=== PATIENT | female | born 1955 | race Caucasian/White ===

== ENCOUNTER 2016-11-12 01:36 | Emergency (ER) | payer OTHER ==
[2016-11-12 01:43] VITALS: BP 140/60
[2016-11-12] MEDS ORDERED: Ondansetron 4 MG Tab.DIS PO ONE (01:57)
[2016-11-12] MEDS ORDERED: Ondansetron 4 MG Tab.DIS ONE ×2 (01:59→05:23)
[2016-11-12] MEDS ORDERED: Promethazine 12.5 MG in Sodium Chloride 0.9% 50 ML IV PRN (02:19)
[2016-11-12] MEDS ORDERED: HYDROmorphone 1 MG/ML Syringe ONE (02:47)
[2016-11-12] MEDS ORDERED: HYDROmorphone 1 MG/ML Syringe IVPUSH ONE ×2 (02:49→04:29)
[2016-11-12 03:23] LABS: CHLORIDE,CL 103 mmol/L (98-115); SODIUM,NA 140 mmol/L (136-145)
[2016-11-12] MEDS ORDERED: Iopamidol 612 MG/ML 75 ML Bottle IV ONE (03:27)
[2016-11-12] MEDS ORDERED: Sodium Chloride 0.9% 50 ML SDV FLUSH SCH (03:30)
--- NOTE | 2016-11-12 03:35 | EDM.PDOC ---
ED HPI GENERAL MEDICAL PROBLEM - General Chief Complaint: Abdominal Pain Stated Complaint: abdominal pain Time Seen by Provider: 11/12/16 02:20 Source of Information: Reports: Patient History Limitations: Reports: No Limitations - History of Present Illness INITIAL COMMENTS - FREE TEXT/NARRATIVE: 61-year-old female presents to the emergency room with complaints of severe abdominal pain nausea and vomiting. Patient has approximately 2+ weeks of the difficulties relating to abdominal pain. She had a CT scan on 10/26/2016 showing evidence of moderate diverticulitis versus colitis from infectious processes. She was on Cipro for 2 weeks and Flagyl for 1 week. Initially she was having some diarrhea and blood in her stools but she now reports that this has ceased. She has noticed more mucus in her stool. She has not been having fevers but does feel chilled and clammy today. She feels extremely nauseated and has had 2 emesis episodes upon arrival in the ER. She describes her pain as sharp and crampy and then goes to adult pain. She rates her pain an 8 out of possible 10 on presentation to the ER. Her pain is across her lower abdomen in the right and left lower quadrant. She recently had a follow-up with her primary care earlier this week Monday and Monday as her symptoms have not completely resolved. She is brought in by her this morning because her pain became more severe and now feels extremely nauseated and again has vomited. Onset: Gradual Onset Date: 11/12/16 Onset Time: 00:00 Duration: Week(s):, Getting Worse Location: Reports: Abdomen Quality: Reports: Sharp, Other (cramping) Severity: Severe Improves with: Reports: None Worsens with: Reports: None Associated Symptoms: Reports: Diaphoresis, Fever/Chills, Nausea/Vomiting. Denies: Chest Pain Left Lower Abdominal Pain Score (Numeric/FACES): 8 - Related Data Allergies Allergy/AdvReac Type Severity Reaction Status Date / Time aspirin Allergy Cannot Verified 11/12/16 02:01 Remember estrogens, conjugated Allergy Cannot Verified 11/12/16 02:01 [From Premarin] Remember nitrofurantoin Allergy Cannot Verified 11/12/16 03:01 [From Macrobid] Remember Sulfa (Sulfonamide Allergy Cannot Verified 11/12/16 02:01 Antibiotics) Remember Home Meds: Home Meds Bethanechol Chloride [Urecholine] 10 mg PO TID 08/12/15 [History] Non-Formulary Medication [NF Drug] 2 cap PO BID 11/12/16 [History] Non-Formulary Medication [NF Drug] 4 cap PO DAILY 11/12/16 [History] Past Medical History HEENT History: Reports: Impaired Vision Gastrointestinal History: Reports: Irritable Bowel Syndrome Genitourinary History: Reports: Other (See Below) Other Genitourinary History: neurogenic bladder KNOCKOUT MAN History: Reports: Endocrine/Metabolic History: Reports: Obesity/BMI 30+ - Past Surgical History HEENT Surgical History: Reports: Tonsillectomy GI Surgical History: Reports: Colonoscopy Female Surgical History: Reports: Hysterectomy Endocrine Surgical History: Reports: None Social & Family History - Tobacco Use Smoking Status *Q: Never Smoker Second Hand Smoke Exposure: No - Caffeine Use Caffeine Use: Reports: Coffee, Soda Caffeine Use Comment: Rarely - Recreational Drug Use Recreational Drug Use: No ED ROS GENERAL - Review of Systems Review Of Systems: See Below Constitutional: Reports: Chills, Diaphoresis HEENT: Reports: No Symptoms Respiratory: Reports: No Symptoms Cardiovascular: Reports: No Symptoms Endocrine: Reports: No Symptoms GI/Abdominal: Reports: Abdominal Pain, Bloody Stool, Diarrhea, Mucous in Stool, Nausea, Vomiting : Reports: No Symptoms Musculoskeletal: Reports: No Symptoms Skin: Reports: Diaphoresis Neurological: Reports: No Symptoms Psychiatric: Reports: No Symptoms Hematologic/Lymphatic: Reports: No Symptoms Immunologic: Reports: No Symptoms ED EXAM, GI/ABD - Physical Exam Exam: See Below Exam Limited By: No Limitations General Appearance: Alert, WD/WN, Moderate Distress, Active Emesis Ears: Hearing Grossly Normal Nose: Normal Inspection Throat/Mouth: Normal Voice, No Airway Compromise Head: Atraumatic Neck: Normal Inspection, Supple, Non-Tender, Full Range of Motion Respiratory/Chest: No Respiratory Distress, Lungs Clear, Normal Breath Sounds, No Accessory Muscle Use, Chest Non-Tender Cardiovascular: Normal Peripheral Pulses, Regular Rate, Rhythm, No Murmur GI/Abdominal Exam: Normal Bowel Sounds, No Distention, No Abnormal Bruit, Tender (RLQ, LLQ) Back Exam: Normal Inspection. No: CVA Tenderness (L), CVA Tenderness (R) Extremities: Normal Inspection, Normal Range of Motion, No Pedal Edema, Normal Capillary Refill Neurological: Alert, Oriented, Normal Cognition, No Motor/Sensory Deficits Psychiatric: Normal Affect, Normal Mood Skin Exam: Cool, Diaphoretic Lymphatic: No Adenopathy Course - Vital Signs Last Recorded V/S: Last Vital Signs Temp 97.8 F 11/12/16 01:40 Pulse 62 11/12/16 01:40 Resp 16 11/12/16 01:40 BP 140/60 11/12/16 01:40 Pulse Ox 96 11/12/16 01:40 - Orders/Labs/Meds Orders: Active Orders 24 hr Category Date Time Status Abdomen Pelvis w Cont [CT] Stat Exams 11/12/16 02:52 Ordered UA W/MICROSCOPIC [URIN] Stat Lab 11/12/16 02:51 Uncollected Promethazine [Phenergan] 12.5 mg Med 11/12/16 02:19 Active Sodium Chloride 0.9% [Normal Saline] 50 ml IV Q6H Sodium Chloride 0.9% [Normal Saline] Med 11/12/16 03:30 Active 50 ml FLUSH ASDIRECTED Medication Orders Promethazine HCl 12.5 mg/ (Sodium Chloride) 50.5 mls @ 200 mls/hr IV Q6H PRN PRN Reason: Nausea/Vomiting Last Admin: 11/12/16 02:27 Dose: 200 mls/hr Sodium Chloride (Normal Saline) 50 ml FLUSH ASDIRECTED LALO Labs: Laboratory Tests 11/12/16 11/12/16 Range/Units 02:06 02:06 WBC 11.9 H (5.0-10.0) 10^3/uL RBC 5.08 (3.80-5.50) 10^6/uL Hgb 14.6 (12.0-16.0) g/dL Hct 43.0 (37.0-47.0) % MCV 84.7 (82.0-92.0) fL MCH 28.7 (27.0-31.0) pg MCHC 33.9 (32.0-36.0) g/dL RDW 11.6 (11.5-14.5) % Plt Count 337 H (150-300) 10^3/uL MPV 7.7 (7.4-10.4) fL Neut % (Auto) 73.7 H (50.0-70.0) % Lymph % (Auto) 16.6 L (20.0-40.0) % [place] % (Auto) 5.9 (2.0-8.0) % Eos % (Auto) 2.4 (1.0-3.0) % Baso % (Auto) 1.4 H (0.0-1.0) % Neut # (Auto) 8.7 H (2.5-7.0) 10^3/uL Lymph # (Auto) 2.0 (1.0-4.0) 10^3/uL [place] # (Auto) 0.7 (0.1-0.8) 10^3/uL Eos # (Auto) 0.3 (0.1-0.3) 10^3/uL Baso # (Auto) 0.2 H (0.0-0.1) 10^3/uL Sodium 140 (136-145) mmol/L Potassium 3.7 (3.3-5.3) mmol/L Chloride 103 (98-115) mmol/L Carbon Dioxide 25.3 (21.0-32.0) mmol/L BUN 10 (6-25) mg/dL Creatinine 0.75 (0.51-1.17) mg/dL Est Cr Clr Drug Dosing 66.30 mL/min Estimated GFR (MDRD) > 60 mL/min Glucose 174 H (70-110) mg/dL Calcium 9.1 (8.7-10.3) mg/dL Total Bilirubin 0.7 (0.2-1.0) mg/dL AST 17 (15-37) U/L ALT 21 (12-78) U/L Alkaline Phosphatase 93 (46-116) IU/L Total Protein 7.7 (6.4-8.2) g/dL Albumin 3.56 (3.00-4.80) g/dL Amylase 54 (25-125) U/L Lipase 99 (73-393) U/L Meds: Medications Generic Name Dose Route Start Last Admin Trade Name Freq PRN Reason Stop Dose Admin Promethazine HCl 12.5 mg/ 50.5 mls @ 200 mls/hr 11/12/16 02:19 11/12/16 02:27 Sodium Chloride IV 200 mls/hr Q6H PRN Administration Nausea/Vomiting Sodium Chloride 50 ml 11/12/16 03:30 Normal Saline FLUSH ASDIRECTED LALO Discontinued Medications Generic Name Dose Route Start Last Admin Trade Name Suman PRN Reason Stop Dose Admin Hydromorphone HCl Confirm 11/12/16 02:47 11/12/16 02:56 Dilaudid Administered 11/12/16 02:48 Not Given Dose 1 mg .ROUTE .STK-MED ONE Hydromorphone HCl 1 mg 11/12/16 02:49 11/12/16 02:50 Dilaudid IVPUSH 11/12/16 02:50 1 mg ONETIME ONE Administration Hydromorphone HCl 1 mg 11/12/16 04:29 11/12/16 04:33 Dilaudid IVPUSH 11/12/16 04:30 1 mg ONETIME ONE Administration Iopamidol 75 ml 11/12/16 03:27 Isovue-300 (61%) IV 11/12/16 03:28 ONETIME ONE Ondansetron HCl 4 mg 11/12/16 01:57 11/12/16 02:00 Zofran Odt PO 11/12/16 01:58 4 mg ONETIME ONE Administration Ondansetron HCl Confirm 11/12/16 01:59 11/12/16 02:26 Zofran Odt Administered 11/12/16 02:00 Not Given Dose 4 mg .ROUTE .STK-MED ONE - Radiology Interpretation Free Text/Narrative:: CT scan abdomen and pelvis with IV contrast Findings: -Sigmoid colonic diverticuli. Thickening of the mid sigmoid colon with associated pericolonic mesenteric fat stranding, consistent with diverticulitis. No extraluminal gas. No pericolonic loculated or drainable fluid collection. Moderate amount of stool within the colon at the level of the mid sigmoid colon:. No obstruction. Impression: -Mild sigmoid colonic diverticulitis without perforation or abscess. -Moderate retained stool. CT Results Date: 11/12/16 - Re-Assessments/Exams Free Text/Narrative Re-Assessment/Exam: 11/12/16 05:24 Patient had resolution of her nausea and vomiting with 12.5 mg of IV Phenergan She was given 1 mg of Dilaudid and her pain improved from an 8 out of 10 to now a 3 out of 10. Additional 1 mg Dilaudid was given about an hour later and now her pain is very minimal reporting just over 1 out of 10. No reoccurrence of nausea or vomiting. Departure - Departure Time of Disposition: 05:28 Disposition: Home, Self-Care 01 Condition: Good Clinical Impression: Diverticulitis large intestine w/o perforation or abscess w/o bleeding - Discharge Information Instructions: Diverticulitis Forms: ED Department Discharge Additional Instructions: 1. Zofran 4 mg ODT every 6 hours as needed for nausea 2. [place] diet and recommend probiotic yogurt for replacement of normal bacterial kari in her stomach due to duration at time of being on antibiotics. 3. Follow-up with your primary care next week due to recurrence of abdominal pain and continuation of your diverticulitis. 4. If severe pain nausea becomes uncontrolled encourage reevaluation of follow- up in the emergency room. - My Orders Last 24 Hours: My Active Orders 11/12/16 02:19 Promethazine [Phenergan] 12.5 mg Sodium Chloride 0.9% [Normal Saline] 50 ml IV Q6H 11/12/16 02:51 UA W/MICROSCOPIC [URIN] Stat 11/12/16 02:52 Abdomen Pelvis w Cont [CT] Stat 11/12/16 03:30 Sodium Chloride 0.9% [Normal Saline] 50 ml FLUSH ASDIRECTED - Assessment/Plan Last 24 Hours: My Active Orders 11/12/16 02:19 Promethazine [Phenergan] 12.5 mg Sodium Chloride 0.9% [Normal Saline] 50 ml IV Q6H 11/12/16 02:51 UA W/MICROSCOPIC [URIN] Stat 11/12/16 02:52 Abdomen Pelvis w Cont [CT] Stat 11/12/16 03:30 Sodium Chloride 0.9% [Normal Saline] 50 ml FLUSH ASDIRECTED Assessment:: 1. Mid sigmoid colonic diverticulitis without perforation or abscess 2. Moderate retained stool. Plan: 1. Zofran 4 mg ODT every 6 hours as needed for nausea 2. [place] diet and recommend probiotic yogurt for replacement of normal bacterial kari in her stomach due to duration at time of being on antibiotics. 3. Follow-up with your primary care next week due to recurrence of abdominal pain and continuation of your diverticulitis. 4. If severe pain nausea becomes uncontrolled encourage reevaluation of follow- up in the emergency room.
== END 2016-11-12 05:33 | disposition home or self-care (01) ==
LOC: KA.ED 01:36
DX: K57.92 Diverticulitis of intestine, part unspecified, without perforation or abscess without bleeding (principal); E66.9 Obesity, unspecified; Z88.2 Allergy status to sulfonamides; Z88.5 Allergy status to narcotic agent; Z90.89 Acquired absence of other organs; Z90.710 Acquired absence of both cervix and uterus; Z68.26 Body mass index [BMI] 26.0-26.9, adult
CPT/HCPCS: 74177; 80053; 82150; 83690; 85025; 96374; 96375; 96376; 99284; A9270; J1170; J2550; J7050; Q9967

== ENCOUNTER 2017-01-09 10:53 | Day surgery (SDC) | payer OTHER ==
[~2017-01-09 10:53] MED LIST: Midazolam 1 MG/ML 2 ML SDV ONE; Propofol 200 MG/20 ML SDV ONE; Sodium Chloride 0.9% 5 ML Syringe FLUSH PRN
[2017-01-09] MEDS ORDERED: Lactated Ringers 1,000 ML IV SCH (11:00)
[2017-01-09] MEDS ORDERED: Propofol 200 MG/20 ML SDV ONE (11:12)
--- NOTE | 2017-01-09 12:00 | PCM.OPNOTE ---
- General Post-Op/Procedure Note Date of Surgery/Procedure: 01/09/17 Operative Procedure(s): Colonoscopy. Findings: Colonoscopy was performed. Revealed a tortuous colon at the sigmoid colon area indicated a previous diverticulitis in this area. No evidence of current diverticulitis. Otherwise negative. Anesthesia Technique: Moderate Sedation Primary Surgeon: Eli Earl Condition: Good Free Text/Narrative:: Colonoscopy.
[2017-01-09] MEDS ORDERED: Midazolam 1 MG/ML 2 ML SDV IV ONE (12:01)
[2017-01-09] MEDS ORDERED: Propofol 200 MG/20 ML SDV IV ONE (12:01)
[2017-01-09 13:48] VITALS: BP 128/76
--- NOTE | 2017-01-11 10:33 | PCM.OPNOTE ---
- General Post-Op/Procedure Note Date of Surgery/Procedure: 01/09/17 Operative Procedure(s): Colonoscopy Findings: Multiple diverticuli noted in the sigmoid colon. Colon is quite tortuous in this area. Otherwise negative. Pre Op Diagnosis: Tortuous colon in the sigmoid colon indicating off previous diverticulitis, without any evidence of acute diverticulitis or obstruction. Anesthesia Technique: MAC Primary Surgeon: Eli Earl Complications: None Condition: Good Free Text/Narrative:: INFORMED CONSENT: Patient is here today for elective colonoscopy. All aspects of this procedure have been discussed with the patient. All possible complications also, including possibility of perforation, infection, pain, bleeding and unknown complications. In the event of perforation patient may need to have abdominal exploration, colon resection, colostomy and even was discussed. Anesthetic complications were handled by anesthesia department. The patient understands fully well. Patient did not have any further questions for me at the end of my interview. The patient wishes for me to proceed. PREOPERATIVE DIAGNOSIS/INDICATIONS: [Left lower quadrant pain, symptoms of obstruction] POSTOPERATIVE DIAGNOSIS: [Multiple diverticuli in the sigmoid colon. Tortuous sigmoid colon.] INSTRUMENT USED: Olympus videocolonoscope. ASA CLASSIFICATION: [2] ANESTHESIA: Continuous EKG, oximetry and intermittent blood pressure and respiratory monitoring were performed throughout the procedure. IV Versed and Fentanyl were administered. PROCEDURE PERFORMED: Colonoscopy POSITIONS OF PATIENT: Left lateral. RECTUM: Normal. SIGMOID COLON: Tortuous sigmoid colon with multiple diverticuli. No evidence of acute diverticulitis or obstruction. DESCENDING COLON: Normal. SPLENIC FLEXURE: Normal. TRANSVERSE COLON: Normal. HEPATIC FLEXURE: Normal. ASCENDING COLON: Normal. CECUM: Normal. ILEOCECAL VALVE: Normal. BIOPSY: None. TOLERANCE: Excellent. COMPLICATIONS: None.
== END 2017-01-09 14:20 | disposition home or self-care (01) ==
LOC: KA.SDS 10:53
PROVIDERS: ATTEND Family Medicine
PROC: 0DJD8ZZ Inspection of Lower Intestinal Tract, Via Natural or Artificial Opening Endoscopic (ICD-10-PCS; principal; 2017-01-09)
DX: K57.30 Diverticulosis of large intestine without perforation or abscess without bleeding (principal); Z79.899 Other long term (current) drug therapy; Z88.1 Allergy status to other antibiotic agents; Z88.2 Allergy status to sulfonamides; Z88.8 Allergy status to other drugs, medicaments and biological substances
CPT/HCPCS: 45378; J2250; J2704; J7120

== ENCOUNTER 2020-10-26 07:01 | Day surgery (SDC) | payer OTHER ==
[~2020-10-26 07:01] MED LIST changes: -Midazolam 1 MG/ML 2 ML SDV ONE; -Propofol 200 MG/20 ML SDV ONE; +Sodium Chloride 0.9% 10 ML Syringe FLUSH PRN; -Sodium Chloride 0.9% 5 ML Syringe FLUSH PRN
[2020-10-26] MEDS: Lactated Ringers 1,000 ML IV SCH (07:39)
[2020-10-26] MEDS ORDERED: Lidocaine 2% Jelly 5 ML Tube ONE (07:41)
[2020-10-26] MEDS ORDERED: Propofol 200 MG/20 ML SDV ONE (07:58)
[2020-10-26] MEDS ORDERED: Midazolam 1 MG/ML 2 ML SDV ONE (07:58)
[2020-10-26] MEDS ORDERED: ceFAZolin 1 GM Vial ONE (07:58)
[2020-10-26] MEDS ORDERED: Glycopyrrolate 0.2 MG/ML SDV ONE (07:58)
[2020-10-26] MEDS ORDERED: Ketamine 200 MG/20 ML MDV ONE (07:59)
[2020-10-26] MEDS ORDERED: Ketamine 200 MG/20 ML MDV IV ONE (08:00)
[2020-10-26] MEDS: Lidocaine 2% Jelly 5 ML Tube ONE (08:19)
--- NOTE | 2020-10-26 08:56 | PCM.OPNOTE ---
- General Post-Op/Procedure Note Date of Surgery/Procedure: 10/26/20 Pre Op Diagnosis: Acute and chronic retention of urine, possible neurogenic bladder Post-Op Diagnosis: As above. Anesthesia Technique: MAC Primary Surgeon: Eli Earl Condition: Good Free Text/Narrative:: Preoperative diagnosis: Acute and chronic retention of urine, possible neurogenic bladder possible urethral obstruction Postoperative diagnosis: As above. Procedure performed: Cystoscopy. All possible complications were discussed and she wished to proceed. She was taken the operating room and kept in the lithotomy position. Genitals were prepped and draped in the usual fashion. Bimanual examination was performed. No abnormalities were detected. No evidence of estrogen deficiency or atrophic vaginitis present. A forward- viewing [facility] cystoscope over the 17 [place] rough and truing machine operator sheath was introduced into the bladder. Urethra was normal. Internal urethric orifice was normal. Bladder mucosa was normal except for a presence of a diverticulum on the left side. Both ureteric orifices were normal in location and the efflux was clear. No evidence of stone or neoplasm detected. The scope was withdrawn. A 12 [place] indwelling Willis catheter was left in the bladder. The patient tolerated the procedure well. She was returned to the recovery room in excellent condition. Final diagnosis: Normal cystoscopy except for bladder diverticulum on the left side. No evidence of neoplasm or stone. No evidence of obstruction. No evidence of atrophic vaginitis.
[2020-10-26 09:47] VITALS: BP 153/83; PULSE 64
== END 2020-10-26 10:15 | disposition home or self-care (01) ==
LOC: KA.SDS 07:01
PROVIDERS: ATTEND Family Medicine
DX: N32.3 Diverticulum of bladder (principal); Z79.899 Other long term (current) drug therapy; Z88.2 Allergy status to sulfonamides; Z88.8 Allergy status to other drugs, medicaments and biological substances
CPT/HCPCS: 00910; J0690; J2250; J2704; J3490; J7120